=== PATIENT | male | born 1970 | race Caucasian/White ===

== ENCOUNTER → 2021-06-17 10:22 | Outpatient (BNVA) | payer BC, SELFPAY | PROVIDERS: PCP Physician Assistant; Referring Provider Physician Assistant; Visit Provider Surgery ==

== ENCOUNTER 2021-06-22 06:10 | Day surgery (SDC) | payer BC, SELFPAY ==
--- NOTE | 2021-06-21 14:03 | HO.ANESPROP2 ---
Documented by User: Alessia Kulkarni NP 06/21/21 14:11 HPI - Anesthesia Eval Consult details Narrative: 50yo M for Left ?Hernia Repair Inguinal with Mesh +ETOH [facility] Active Problems Active Problems: All Active Problems (Updated 06/21/21 @ 08:58 by Alessia Kulkarni NP) Screening for hypothyroidism (Acute) Screening for hypercholesterolemia (Acute) Screening for diabetes mellitus (DM) (Acute) Inguinal hernia (Acute) Past Medical History Medical History Alcohol abuse Gout HLD (hyperlipidemia) HTN (hypertension) Smoking Family History Family History Father Cancer Surgical History Surgical History History of back surgery (09/2018) Social History Social History Housing: House Alcohol intake: never Patient Tobacco Use Status: Current everyday Tobacco user Tobacco use type: Cigarette Cigarettes Per Day: 12 e-Cigarette/Vaping Use: Never Used Second Hand Smoke Exposure: No Use of substances other than those prescribed or required for medical reasons: No Have you been hit, kicked, punched, or otherwise hurt by someone within the past year? If so, by whom?: No Are you DNR?: No Advance Directives: No Advance Directives Information Provided: Yes service: No Current occupational status: employed Meds Allergies Allergy/AdvReac Type Severity Reaction Status Date / Time No Known Allergies Allergy Verified 06/22/21 06:43 [No Known Allergies*] Home Medications Medication Instructions Recorded Confirmed Last Taken Type zolpidem 10 mg tablet (Ambien) 10 mg PO BEDTIME PRN 05/12/21 05/12/21 Unknown History Exam Exam Date and Time: June 21, 2021 1403 Assessment and Plan Assessment Anesthesia Assessment: Chart Reviewed Documented by User: Lis Gongora MD 06/22/21 07:02 [facility] Past Medical History Medical History Alcohol abuse Gout HLD (hyperlipidemia) HTN (hypertension) Smoking Family History Family History Father Cancer Family history of problems with anesthesia: No Surgical History Surgical History History of back surgery (09/2018) History of Problems with Anesthesia: No Social History Social History Housing: House Alcohol intake: never Patient Tobacco Use Status: Current everyday Tobacco user Tobacco use type: Cigarette Cigarettes Per Day: 12 e-Cigarette/Vaping Use: Never Used Second Hand Smoke Exposure: No Use of substances other than those prescribed or required for medical reasons: No Have you been hit, kicked, punched, or otherwise hurt by someone within the past year? If so, by whom?: No Are you DNR?: No Advance Directives: No Advance Directives Information Provided: Yes service: No Current occupational status: employed Meds Allergies Allergy/AdvReac Type Severity Reaction Status Date / Time No Known Allergies Allergy Verified 06/22/21 06:43 [No Known Allergies*] Home Medications Medication Instructions Recorded Confirmed Last Taken Type zolpidem 10 mg tablet (Ambien) 10 mg PO BEDTIME PRN 05/12/21 05/12/21 Unknown History Exam Airway Mallampati Class: II TM Dist: >3cm Neck ROM: Full Assessment and Plan Assessment Anesthesia Assessment: Anesthesia Plan Discussed Final Anesthetic Review Family History of Problems with Anesthesia: No History of Problems with Anesthesia: No NPO: Yes ASA Class: II Final Preanesthetic Review: No Changes in Pt Med Stat, Meds/Allgs Chart Reviewed, Consent Obtained/Reviewed and Anes Risks/Benef Reviewed Patient Risk: Low Procedure Risk: Low Assessment/Block/Sedation in SS: Assess/Block/Sedation-SS Anesthetic Plan Anesthetic Plan: GA Disposition: Standard PACU
[2021-06-22] VITALS (10 sets, daily range): BP systolic 110–138; BP diastolic 68–87; PULSE 72–96; RESP 16–18; TEMP 36.2–36.4; O2SAT 98–100; BMI 23.0
[2021-06-22] MEDS: Lactated Ringers 1,000 ML 100 ML IVCONT (06:46)
--- NOTE | 2021-06-22 07:33 | MHC.SHP ---
Pre-Procedural Eval Section A Date of Service: 06/22/21 The patient is an INPATIENT: No Changes since office visit: Yes Patient answered all questions; No Cold of Flu in the past 2 weeks, No New Medical Problems and No Changes in Medication The History & Physical has been completed within 30 days and I have reviewed it.: Yes Section B Chief Complaint: Inguinal Hernia Allergies: Allergies Allergy/AdvReac Type Severity Reaction Status Date / Time No Known Allergies Allergy Verified 06/22/21 06:43 [No Known Allergies*] Plan Diagnosis/Plan: Unchanged I have reviewed the history and physical and performed a pertinent physical examination on my patient. No changes have occurred unless specified.
--- NOTE | 2021-06-22 07:33 | W.PM.OPN ---
Operative Note Operative Note Date of Service: 06/22/21 Narrative: Preoperative diagnosis: Left inguinal hernia Postoperative diagnosis: Left inguinal hernia Procedure: Repair of left inguinal hernia with mesh Surgeon: Aroldo Harrell MD [employer] Assembler: Roxana Bernstein PA-C Anesthesia: General LMA Indications for procedure: 50-year-old male presenting with a palpable mass in the right groin which creases in size with lifting and straining and reduces pressure. On examination the patient is found to have a palpable hernia within the inguinal canal suggestive of a left indirect inguinal hernia. Operative findings: Indirect left inguinal hernia Specimen: Hernia sac Estimated blood loss: 5 mL Complications: None Procedure details: Patient was brought to the OR and placed in a supine position. After administering general anesthesia the patient's abdomen was prepped with ChloraPrep and draped in a sterile fashion. A surgical time-out was called the consent confirmed. Patient received preoperative antibiotics and Venodyne boots were in place. Local anesthesia consisting of 0.5% Sensorcaine with epinephrine was then infiltrated over the left inguinal ligament. Incision was then made over the left inguinal ligament carried out through subcutaneous tissue past Dgao's fashion up to the external oblique aponeurosis. Additional local was infiltrated below the external oblique aponeurosis. This was then incised with a scalpel wide with the Metzenbaum scissors. The spermatic cord was then dissected free from the surrounding inguinal canal and retracted using a [place] drain. The floor of the inguinal canal was examined and no direct hernia identified. Fibers of the cremasteric muscle were then and a large indirect hernia sac identified. This was dissected free from the surrounding cord structures and ligated with 0 Polysorb suture proximally. The distal portion was dissected free and extended down past the external ring. The sac was sent to pathology for further examination. Attention was then directed to the floor of the inguinal canal. Fibers of the internal oblique aponeurosis and transversalis aponeurosis were then opened between Allis clamps. The preperitoneal space was then entered and widened with an open Ray-Mirella. A large PHS mesh was then obtained. The circular underlay was then deployed into the preperitoneal space. The overlay was then secured to the pubic tubercle, conjoined tendon, and shelving edge of the inguinal ligament using 0 Polysorb suture. The mesh was then split at the level of the internal ring and wrapped around the spermatic cord. This was then secured to the shelving edge of the inguinal ligament. The remaining mesh was placed below the external oblique aponeurosis laterally. Wounds were then irrigated with saline solution. Wounds were checked for hemostasis. Additional local anesthesia was infiltrated at this time. External oblique aponeurosis was then closed using a running 2 0 Polysorb suture. Dago's fascia and dermis were then reapproximated using interrupted 3-0 Polysorb sutures. Skin was closed using a running subcuticular 4-0 Polysorb suture. Steri-Strips 2 x 2 gauze and Tegaderm were then applied. The patient tolerated the procedure well. Sponge, instrument, and needle counts were reported as correct. The patient was transferred to PACU in stable condition.
[2021-06-22] MEDS: Acetaminophen 325 MG TABLET 650 MG PO (08:52)
[2021-06-22] MEDS: oxyCODONE HCl Immed Release 5 MG TABLET PO (08:53)
[2021-06-22] MEDS: fentaNYL citrate/PF 100 MCG/2 ML VIAL 50 MCG IVPUSH ×4 (08:53→09:21)
== END 2021-06-22 09:50 | disposition home or self-care (01) ==
PROVIDERS: PCP Physician Assistant; Visit Provider Surgery
PROC: (CPT 49505; principal; 2021-06-22 07:30)
DX: K40.90 Unilateral inguinal hernia, without obstruction or gangrene, not specified as recurrent (principal); I10 Essential (primary) hypertension; Z79.899 Other long term (current) drug therapy; F17.210 Nicotine dependence, cigarettes, uncomplicated
CPT/HCPCS: 49505; 88302; C1781; J0690; J1100; J2250; J2370; J2405; J3010

== ENCOUNTER → 2021-06-30 13:21 | Outpatient (BNVA) | payer BC, SELFPAY | PROVIDERS: PCP Physician Assistant; Referring Provider Physician Assistant; Visit Provider Surgery ==

== ENCOUNTER → 2021-07-28 10:50 | Outpatient (BNVA) | payer BC, SELFPAY | PROVIDERS: PCP Physician Assistant; Referring Provider Physician Assistant; Visit Provider Surgery ==

== ENCOUNTER 2025-04-16 12:51 | Outpatient (AMB) | payer BC, SELFPAY ==
--- NOTE | 2025-04-16 13:10 | MHC.PC.OV ---
Vital Signs 04/16/25 13:13 Height 5 ft 7.32 in Weight 154 lb 6 oz BMI 23.9 BP 142/104 H Blood Pressure Location Lt brachial Pulse 104 H Pulse Source Pulse Oximeter Temp 97.3 F Temp Source Temporal Artery Scan Pulse Oximetry (%) 98 Intake Visit Reasons: establish care/ hernia Oracle Specialist Required: No Accompanied by: Self / Same As Patient Allergies No Known Allergies (No Known Allergies*) Allergy (Verified 04/16/25 13:22) Medication List - Last Reconciled 04/16/25 by Jose Cummins PA-C No Known Home Meds Tobacco use date assessed: 04/16/25 Dental Screening Dental Screen Date: 04/16/25 Did you have a dental visit in the last 12 months?: No Did you have a dental problem in the last 6 months where you did not have access to dental care?: No Was dental information given to patient?: Patient has dentist HPI establish care/ hernia HPI Details Patient is a 54-year-old male here today for establish care visit. Has concerned about a right inguinal mass and pain. The hernia was first noticed in mid-December and was exacerbated three weeks ago during lifting at work, leading to significant discomfort and a fever that confined him to bed for three days. The hernia is not always visible, but it protrudes depending on the patient's position, particularly in the morning or during activities like showering. Noted elevated blood pressure reading today in office though could be related to his inguinal discomfort at this time. Advised to monitor blood pressure at home. [facility] Medical History Gout Alcohol abuse HLD (hyperlipidemia) HTN (hypertension) Smoking Surgical History S/P left inguinal hernia repair (06/22/21) History of back surgery (09/2018) Family History Father Cancer Social History (Updated 04/16/25 @ 13:24 by Jose Cummins PA-C) Housing: House Alcohol intake: former Year quit: 2017 Patient Tobacco Use Status: Former Tobacco user (quit 3 years ago) Tobacco use type: Cigarette Cigarettes Per Day: 12 e-Cigarette/Vaping Use: Currently Using (Nicotine) Second Hand Smoke Exposure: No Substance Use Type: Marijuana service: No Current occupational status: employed Cognitive needs: No Hearing needs: No Vision needs: No Questionnaire PHQ-9 Over the last 2 weeks, how often have you been bothered by any of the following problems? 1. Little interest or pleasure in doing things: not at all 2. Feeling down, depressed, or hopeless: not at all 3. Trouble falling or staying asleep, or sleeping too much: not at all 4. Feeling tired or having little energy: not at all 5. Poor appetite or overeating: not at all 6. Feeling bad about yourself - or that you are a failure or have let yourself or your family down: not at all 7. Trouble concentrating on things, such as reading the newspaper or watching television: not at all 8. Moving or speaking so slowly that other people could have noticed. Or the opposite - being so fidgety or restless that you have been moving around a lot more than usual: not at all 9. Thoughts that you would be better off or of hurting yourself in some way: not at all Total score: 0 Depression Screening Interpretation: Negative Depression Screening Done: Yes 08869 - PHQ-9 Billing: Yes Source: Developed by Drs. Claudy Rae, Shayla Roper, Trever Perez and colleagues, with an educational ayleen from [employer]. Thrive Questionnaire Date Thrive assessed: 04/16/25 I am a: Patient What is your living situation today?: I have a steady place to live Within the past 12 months, did the food you bought not last and you didn't have the money to get more?: Never true Within the past 12 months, did you worry whether your food would run out before you got money to buy more?: Never true Do you have trouble paying for medicines?: No Do you have trouble getting transportation to medical appointments?: No Do you have trouble paying your heating and electricity bill?: No Do you have trouble taking care of your child, family member or friend?: No Do you have trouble with day-to-day activities such as bathing, preparing meals, shopping, managing finances, etc.?: No Are you currently unemployed and looking for a job?: No Are you interested in more education?: No Please select the resources that you would like help with: None Currently or been in a relationship where the following occur: No concerns reported THRIVE Score: 0 AUDIT C Alcohol Use Questionnaire (AUDIT-C) 1. How often do you have a drink containing alcohol?: Never 3. How often do you have six or more drinks on one occasion?: Never Total Score: 0 LANDY-7 AMB Questionnaire LANDY-7 Date LANDY - 7 assessed: 04/16/25 Feeling nervous, anxious, or on edge: 0 = Not at all Not being able to stop or control worryin = Not at all Worrying too much about different things: 0 = Not at all Trouble relaxin = Not at all Being so restless that it is hard to sit still: 0 = Not at all Becoming easily annoyed or irritable: 0 = Not at all Feeling afraid as if something awful might happen: 0 = Not at all Total LANDY-7 score (0-4 normal; 5-9 mild; 10-14 moderate; 15-21 severe): 0 Source: Developed by Drs. Claudy Rae, Shayla Roper, Trever Perez and colleagues, with an educational ayleen from [employer]. LANDY-7 Assessment Billing LANDY-7 Assessment Tool: LANDY-7 Assessment 50644 Review of Systems Const Denies headache(s) Eyes Denies loss of vision ENT Denies vertigo, Denies dizziness, Denies headache(s) and Denies sore throat Card Denies chest pain, Denies leg edema and Denies lightheadedness Resp Denies cough, Denies hemoptysis and Denies wheezing GI Denies abdominal pain, Denies melena, Denies constipation, Denies diarrhea and Denies vomiting Denies dysuria, Denies urinary frequency and Denies urinary urgency Musc Denies arthralgias, Denies joint swelling, Denies numbness and Denies tingling Neuro Denies Abnormal speech present, Denies behavioral changes, Denies vertigo, Denies dizziness, Denies headache(s), Denies loss of vision, Denies memory loss, Denies numbness and Denies tingling Psych Denies anxiety, Denies behavioral changes, Denies depression, Denies memory loss and Denies panic attacks Arturo/Lymph Denies easy bleeding and Denies easy bruising Aller/Immun Denies wheezing Physical exam (Primary Care) Vital Signs: Last Vital Signs Temp 97.3 F 04/16/25 13:13 Pulse 104 H 04/16/25 13:13 BP 142/104 H 04/16/25 13:13 Pulse Ox 98 04/16/25 13:13 BMI result Body Mass Index 23.9 Tobacco/Smoking Status: Tobacco use Status Tobacco use date assessed 04/16/25 04/16/25 13:21 Patient Tobacco Use Status Former Tobacco user (quit 3 04/16/25 13:21 years ago) Tobacco use type Cigarette 04/16/25 13:20 e-Cigarette/Vaping Use Currently Using (Nicotine) 04/16/25 13:21 PHQ-9: PHQ-9 Score PHQ-9: Total score 0 04/16/25 13:21 Depression Screening Interpretation: Negative Thrive Assessment: Date of Thrive Assessment Date Thrive assessed 04/16/25 04/16/25 13:12 Currently or been in a relationship where the following occur: No concerns reported Const General: healthy appearing, no acute distress, alert and awake Nutritional Appearance: well nourished Orientation/consciousness: oriented to person, oriented to place and oriented to time HENMT Ears: TM's normal bilaterally General nose exam: Normal nasal mucous membranes and turbinates present Eyes Conjunctivae: conjunctivae normal Sclerae: sclerae normal Pupils: Equal, round and reactive pupils present Neck Neck: Yes no lymphadenopathy and Yes no JVD Thyroid: Thyroid normal Carotids: no bruits Resp Effort & Inspection: normal respiratory effort and not tachypneic Auscultation: no crackles, no rales, no rhonchi and no wheezes Cardio Rate: regular rate Rhythm: regular rhythm Heart sounds: no murmurs and normal S1 and S2 GI Palpation (GI): Soft to palpation, nontender, no hepatomegaly and no splenomegaly Auscultation: normal bowel sounds Abdomen image:  1. FULLNESS NOTED IN THE RIGHT INGUINAL AREA. Skin General skin exam: no rashes or lesions noted and dry skin Neuro General: oriented to person, oriented to place and oriented to time Cranial nerves: Yes Equal, round and reactive pupils present Speech: No Abnormal speech present Gait exam (Neuro): Normal gait present Motor exam (neuro): no tremor noted Extrem Right upper extremity: full ROM Left upper extremity: full ROM Right lower extremity: full ROM; no edema Left lower extremity: full ROM; no edema Psych Mental Status: mental status grossly normal Speech and movement: Normal speech and movement present Affect: normal affect Attitude: cooperative Thought process: Normal thought process present Coding Level of Care Code New Pt Level 4 (50590) Diagnoses Right inguinal hernia K40.90 Additional Codes LANDY-7 Assessment Billing - LANDY-7 Assessment Tool: LANDY-7 Assessment 71071 ([id number]) PHQ-9 - 67359 - PHQ-9 Billing: Yes ([id number]) Assessment & Plan Assessment & Plan (1) Right inguinal hernia: Code(s): K40.90 - Unilateral inguinal hernia, without obstruction or gangrene, not specified as recurrent Category: Medical Plan: A referral to a general surgeon will be made for surgical evaluation and repair of the right inguinal hernia. A CT scan of the abdomen and pelvis will be ordered to assess the hernia further and provide necessary imaging for the surgeon. Orders: Orders Complete Blood Count no Diff Today Z13.1 - Encounter for screening for diabetes mellitus CT abdomen pelvis wo IV con Today K40.90 - Unilateral inguinal hernia, without obstruction or gangrene, not specified as recurrent Comprehensive [place]. Panel Fast Today Z13.1 - Encounter for screening for diabetes mellitus Prostate Specific Antigen Scr Today Z12.5 - Encounter for screening for malignant neoplasm of prostate, Z13.1 - Encounter for screening for diabetes mellitus Referrals General Surgery Referral K40.90 - Unilateral inguinal hernia, without obstruction or gangrene, not specified as recurrent Medications: New diclofenac sodium 50 mg PO DAILY 15 tabs 0RF 15 days K40.90 - Unilateral inguinal hernia, without obstruction or gangrene, not specified as recurrent
[2025-04-16 13:13] VITALS: BP 142/104; PULSE 104; TEMP 36.3; O2SAT 98; BMI 23.9
== END 2025-04-16 13:34 | disposition home or self-care (01) ==
LOC: HO.HMCH 12:52
PROVIDERS: PCP Physician Assistant; Visit Provider Physician Assistant
DX: K40.90 Unilateral inguinal hernia, without obstruction or gangrene, not specified as recurrent (principal)

== ENCOUNTER → 2025-04-16 12:51 | Outpatient (BNVA) | payer BC, SELFPAY | PROVIDERS: Visit Provider Physician Assistant | DX: K40.90 Unilateral inguinal hernia, without obstruction or gangrene, not specified as recurrent (principal) | CPT/HCPCS: 96127 ==

== ENCOUNTER 2025-04-27 13:58 | Outpatient (AMB) | payer BC, SELFPAY ==
--- NOTE | 2025-04-27 14:09 | MHC.OFFVIS ---
Vital Signs 04/27/25 14:13 Height 5 ft 7.35 in Weight 157 lb BMI 24.3 BP 152/90 H Blood Pressure Location Lt brachial Position Sitting Intake Visit Reasons: hernia Intake Note: c/o hernia in rt side. Noted it first in december. Painful in the last 4 weeks. had Hernia repair in left side in Aug Information Interpreted: clinical only Accompanied by: Self / Same As Patient Allergies No Known Allergies (No Known Allergies*) Allergy (Verified 04/27/25 14:12) Medication List - Last Reconciled 04/27/25 by Rebecca Chase LPN diclofenac sodium 50 mg PO DAILY 15 days Do you need a note to return to daycare/school/sports/work: No HPI Comments Details: 54-year-old male patient returning for complaints of pain and swelling in the right groin. He has a previous history of a left inguinal hernia which was repaired with mesh in 2020. Since this time he now notes pain and swelling in the right groin which began in December after doing some heavy lifting. The pain has increased in severity as has the size of the hernia. He denies nausea, vomiting, fever, chills, diarrhea, constipation or bloody stools. He denies a previous history of surgery in the right groin. [place] [facility] but would like to have the hernia repaired soon after that if possible. [facility] Medical History Gout Alcohol abuse HLD (hyperlipidemia) HTN (hypertension) Smoking Surgical History S/P left inguinal hernia repair (06/22/21) History of back surgery (09/2018) Family History Father Cancer Social History Housing: House Alcohol intake: former Year quit: 2017 Patient Tobacco Use Status: Former Tobacco user (quit 3 years ago) Tobacco use type: Cigarette Cigarettes Per Day: 12 e-Cigarette/Vaping Use: Currently Using (Nicotine) Second Hand Smoke Exposure: No Substance Use Type: Marijuana service: No Current occupational status: employed Cognitive needs: No Hearing needs: No Vision needs: No Review of Systems Const All systems reviewed & are unremarkable except as noted in HPI and below Physical Exam Vital Signs: Last Vital Signs BP 152/90 H 04/27/25 14:13 BMI result Body Mass Index 24.3 Const General: cooperative and no acute distress Nutritional Appearance: well nourished Orientation/consciousness: patient oriented x3 Limitations: no limitations HEENT Head: Yes normocephalic and Yes atraumatic Ears: hearing grossly normal bilaterally Resp Effort & Inspection: normal respiratory effort, no audible wheezes, no cough and no respiratory distress Cardio Jugular venous distension: no JVD GI Other: Large right inguinal hernia noted in the standing position which increases in size with Valsalva maneuvers. The hernias able to be reduced with some difficulty while in the supine position. There is some tenderness with palpation of the hernia. No hernias noted in the left groin. Inspection: Yes normal to inspection Skin Other: Warm, dry, no rash Neuro General: patient oriented x3 Extrem General: Yes no clubbing, cyanosis or edema Assessment & Plan Assessment & Plan (1) Right inguinal hernia: Code(s): K40.90 - Unilateral inguinal hernia, without obstruction or gangrene, not specified as recurrent Category: Medical Plan 54-year-old male patient with a previous history of a left inguinal hernia repair now presenting with a new right inguinal hernia which is causing discomfort. On examination he does have a large reducible right inguinal hernia which is tender to palpation. I recommended repair of this reducible right inguinal hernia with mesh and after discussion of the procedure, risks, and alternatives, he consents to the surgery. I suggested he obtain a hernia truss in the meantime help keep the hernia reduced especially if lifting is required in his job. He expressed understanding. Coding Level of Care Code New Pt Level 4 (94390) Diagnoses Right inguinal hernia K40.90
[2025-04-27 14:13] VITALS: BP 152/90; BMI 24.3
== END 2025-04-27 15:03 | disposition home or self-care (01) ==
LOC: HO.HGS 13:59
PROVIDERS: PCP Physician Assistant; Visit Provider Surgery
DX: K40.90 Unilateral inguinal hernia, without obstruction or gangrene, not specified as recurrent (principal)
CPT/HCPCS: 99204

== ENCOUNTER 2025-05-01 07:49 | Outpatient (REF) | payer BC, SELFPAY ==
[2025-05-01 08:16] LABS: Hematocrit 42.4 % (42.0-52.0); Hemoglobin 14.2 g/dl (14.0-18.0); Mean Corpuscular HGB Conc 33.5 g/dl (31.0-36.0); Mean Corpuscular Hemoglobin 28.2 pg (27.0-33.0); Mean Corpuscular Volume 84.1 fL (80.0-98.0); NRBC Abs Auto 0.000 X10*3/uL (0.0-0.012); NRBC Pct Auto 0.0 /100WBC (0.0-0.2); Platelet Count 227 X10*3/uL (160-400); Red Blood Count 5.04 X10*6/uL (4.60-5.80); White Blood Count 6.5 X10*3/uL (4.8-10.8)
[2025-05-01 08:45] LABS: Alanine Aminotransferase 11 U/L (0-40); Albumin Level 4.5 g/dL (3.5-5.0); Alkaline Phosphatase 63 U/L (39-117); Anion Gap 12 (12-20); Aspartate Amino Transferase 14 U/L (5-37); Blood Urea Nitrogen 12 mg/dL (9-16); Calcium 9.2 mg/dL (8.4-10.2); Carbon Dioxide 25 mmol/L (22-29); Chloride 105 mmol/L (96-108); Estimated Glomerular Filt Rate > 60; Potassium 4.4 mmol/L (3.3-5.1); Sodium 138 mmol/L (135-145); Total Protein 7.3 g/dL (6.5-8.0)
== END 2025-05-01 07:50 | disposition home or self-care (01) ==
LOC: HO.LAB 07:49
PROVIDERS: PCP Physician Assistant; Visit Provider Physician Assistant
DX: Z12.5 Encounter for screening for malignant neoplasm of prostate (principal); Z13.1 Encounter for screening for diabetes mellitus
CPT/HCPCS: 36415; 80053; 84153; 85027

== ENCOUNTER 2025-05-13 08:29 | Day surgery (SDC) | payer BC, SELFPAY ==
[2025-05-11 12:08] VITALS: BMI 24.6
--- NOTE | 2025-05-12 09:17 | HO.ANESPROP2 ---
HPI - Anesthesia Eval Consult details Narrative: 54 yr old male for right Inguinal hernia repair, reducible with mesh s/p left inguinal hernia repair 2020 Labs utd with PCP 05/01/25 [facility] Active Problems Active Problems: All Active Problems (Updated 04/16/25 @ 13:30 by Jose Cummins PA-C) Right inguinal hernia (Acute) Screening for hypothyroidism (Acute) Screening for hypercholesterolemia (Acute) Screening for diabetes mellitus (DM) (Acute) Inguinal hernia (Acute) Past Medical History Medical History Gout Alcohol abuse HLD (hyperlipidemia) HTN (hypertension) Smoking Family History Family History Father Cancer Family history of problems with anesthesia: No Surgical History Surgical History S/P left inguinal hernia repair (06/22/21) History of back surgery (09/2018) History of Problems with Anesthesia: No Social History Social History Housing: House Alcohol intake: former Year quit: 2018 Patient Tobacco Use Status: Former Tobacco user (quit 3 years ago) Tobacco use type: Cigarette Cigarettes Per Day: 12 e-Cigarette/Vaping Use: Currently Using (Nicotine) Second Hand Smoke Exposure: No Substance Use Type: Marijuana service: No Current occupational status: employed Cognitive needs: No Hearing needs: No Vision needs: No Meds Allergies Allergy/AdvReac Type Severity Reaction Status Date / Time No Known Allergies (No Known Allergy Verified 04/27/25 14:12 Allergies*) Exam Height,Weight and Vital Signs: Height 5 ft 7 in Weight 71.214 kg Assessment and Plan Final Anesthetic Review Family History of Problems with Anesthesia: No History of Problems with Anesthesia: No
[2025-05-13] VITALS (8 sets, daily range): BP systolic 116–170; BP diastolic 69–100; PULSE 48–92; RESP 16–18; TEMP 36.1–36.7; O2SAT 92–100; BMI 24.5
[2025-05-13] MEDS: Lactated Ringers 1,000 ML 100 ML IVCONT (08:49)
--- NOTE | 2025-05-13 09:38 | HO.ANESPROP2 ---
[facility] Active Problems Active Problems: All Active Problems (Updated 04/16/25 @ 13:30 by Jose Cummins PA-C) Right inguinal hernia (Acute) Screening for hypothyroidism (Acute) Screening for hypercholesterolemia (Acute) Screening for diabetes mellitus (DM) (Acute) Inguinal hernia (Acute) Past Medical History Medical History Gout Alcohol abuse HLD (hyperlipidemia) HTN (hypertension) Smoking Functional capacity: independent ambulation Family History Family History Father Cancer Family history of problems with anesthesia: No Surgical History Surgical History S/P left inguinal hernia repair (06/22/21) History of back surgery (09/2018) History of Problems with Anesthesia: No Social History Social History Housing: House Alcohol intake: former Year quit: 2018 Patient Tobacco Use Status: Former Tobacco user Tobacco use type: Smokeless Tobacco Cigarettes Per Day: 12 e-Cigarette/Vaping Use: Currently Using (Nicotine) Second Hand Smoke Exposure: No Substance Use Type: Marijuana Have you been hit, kicked, punched, or otherwise hurt by someone within the past year? If so, by whom?: No Are you DNR?: No Advance Directives: No Advance Directives Information Provided: Yes service: No Current occupational status: employed Cognitive needs: No Hearing needs: No Vision needs: No Meds Allergies Allergy/AdvReac Type Severity Reaction Status Date / Time No Known Allergies (No Known Allergy Verified 04/27/25 14:12 Allergies*) Active Medications: Current Medications Lactated Ringer's (Lr) 1,000 mls @ 100 mls/hr IVCONT .Q10H MIR Last Admin: 05/13/25 08:49 Dose: 100 mls/hr Home Medications ?Medication ?Instructions ?Recorded ?Confirmed ?Last Taken ?Type No Known Home Meds 05/13/25 05/13/25 Unknown History Exam Height,Weight and Vital Signs: Height 5 ft 7 in Weight 70.9 kg Last Vital Signs Temp 97 F 05/13/25 08:55 Pulse 62 05/13/25 08:55 Resp 18 05/13/25 08:55 BP 116/81 05/13/25 08:55 Pulse Ox 97 05/13/25 08:55 O2 Del Method Room Air 05/13/25 08:55 Assessment and Plan Final Anesthetic Review Family History of Problems with Anesthesia: No History of Problems with Anesthesia: No
--- NOTE | 2025-05-13 10:10 | MHC.SHP ---
Pre-Procedural Eval Section A - 24 Hr Update-Section A only Date of Service: 05/13/25 The patient is an INPATIENT: No Changes since office visit: Yes Patient answered all questions; No Cold of Flu in the past 2 weeks, No New Medical Problems and No Changes in Medication The patient has been examined within 24 hours of the surgical procedure. The History & Physical has been completed within 30 days and I have reviewed it.: Yes Section B - Complete if H&P > 30 days Chief Complaint: Unilateral inguinal hernia, without obstruction Allergies: Allergies Allergy/AdvReac Type Severity Reaction Status Date / Time No Known Allergies (No Known Allergy Verified 04/27/25 14:12 Allergies*) Plan Diagnosis/Plan: Unchanged I have reviewed the history and physical and performed a pertinent physical examination on my patient. No changes have occurred unless specified. Time Spent With Patient Time: Total time managing care of this patient today ____ minutes.
--- NOTE | 2025-05-13 10:13 | HO.ANESPROP2 ---
[facility] Active Problems Active Problems: All Active Problems (Updated 04/16/25 @ 13:30 by Jose Cummins PA-C) Right inguinal hernia (Acute) Screening for hypothyroidism (Acute) Screening for hypercholesterolemia (Acute) Screening for diabetes mellitus (DM) (Acute) Inguinal hernia (Acute) Past Medical History Medical History Gout Alcohol abuse HLD (hyperlipidemia) HTN (hypertension) Smoking Functional capacity: independent ambulation Family History Family History Father Cancer Family history of problems with anesthesia: No Surgical History Surgical History S/P left inguinal hernia repair (06/22/21) History of back surgery (09/2018) History of Problems with Anesthesia: No Social History Social History Housing: House Alcohol intake: former Year quit: 2018 Patient Tobacco Use Status: Former Tobacco user Tobacco use type: Smokeless Tobacco Cigarettes Per Day: 12 e-Cigarette/Vaping Use: Currently Using (Nicotine) Second Hand Smoke Exposure: No Substance Use Type: Marijuana Have you been hit, kicked, punched, or otherwise hurt by someone within the past year? If so, by whom?: No Are you DNR?: No Advance Directives: No Advance Directives Information Provided: Yes service: No Current occupational status: employed Cognitive needs: No Hearing needs: No Vision needs: No Meds Allergies Allergy/AdvReac Type Severity Reaction Status Date / Time No Known Allergies (No Known Allergy Verified 04/27/25 14:12 Allergies*) Active Medications: Current Medications Lactated Ringer's (Lr) 1,000 mls @ 100 mls/hr IVCONT .Q10H MIR Last Admin: 05/13/25 08:49 Dose: 100 mls/hr Home Medications ?Medication ?Instructions ?Recorded ?Confirmed ?Last Taken ?Type No Known Home Meds 05/13/25 05/13/25 Unknown History Exam Height,Weight and Vital Signs: Height 5 ft 7 in Weight 70.9 kg Last Vital Signs Temp 97 F 05/13/25 08:55 Pulse 62 05/13/25 08:55 Resp 18 05/13/25 08:55 BP 116/81 05/13/25 08:55 Pulse Ox 97 05/13/25 08:55 O2 Del Method Room Air 05/13/25 08:55 Airway Mallampati Class: I TM Dist: >3cm Neck ROM: Full Heart: RRR Lungs: CTA Assessment and Plan Assessment Anesthesia Assessment: Anesthesia Plan Discussed and Chart Reviewed Final Anesthetic Review Family History of Problems with Anesthesia: No History of Problems with Anesthesia: No NPO: Yes ASA Class: II Final Preanesthetic Review: Meds/Allgs Chart Reviewed, Consent Obtained/Reviewed and Anes Risks/Benef Reviewed Patient Risk: Intermediate Procedure Risk: Low Anesthetic Plan Anesthetic Plan: GA Disposition: Standard PACU
--- NOTE | 2025-05-13 11:26 | W.PM.OPN ---
Operative Note Operative Note Date of Service: 05/13/25 Narrative: Preoperative diagnosis: Right inguinal hernia, reducible Postoperative diagnosis: Same Procedure: Repair of right inguinal hernia with mesh Surgeon: Aroldo Harrell MD Structured Cabling Technician: Michoacano Gonzales PA-C, Vernon PALM Anesthesia: General LMA Indications for procedure: 54-year-old male patient with a previous history of a left inguinal hernia repair now presenting with a lump in the right groin which increases in size with lifting and straining and reduces with light pressure. On examination he has a palpable right inguinal hernia which is reducible with light pressure. Operative findings: Right indirect inguinal hernia Specimen: Hernia sac Estimated blood loss: Less than 2 mL Complications: None Procedure details: Patient was brought to the OR and placed in a supine position. After administering general anesthesia the patient's abdomen was prepped with ChloraPrep and draped in a sterile fashion. A surgical time-out was called the consent confirmed. Patient received preoperative antibiotics and Venodyne boots were in place. Local anesthesia consisting of 0.5% Sensorcaine was infiltrated over the right inguinal ligament. Incision was made with a scalpel and carried out through subcutaneous tissue, past Dago's fashion up to the external oblique aponeurosis. Additional local was infiltrated below the external oblique aponeurosis. This was then incised with a scalpel and widened with the Metzenbaum scissors. The spermatic cord was then dissected free from the surrounding inguinal canal and retracted using a Valentine drain. The floor of the inguinal canal was found to be intact without a direct inguinal hernia. Fibers of the cremaster muscle were then and a large hernia sac identified. This was dissected to the internal ring. The sac was then opened and the contents reduced. The sac was then ligated at its base using a 0 Polysorb suture. The sac was then excised and sent to pathology for further examination. The internal ring was then further dilated using a open Ray-Mirella sponge to dissect the preperitoneal space. A large PHS mesh was then obtained. The circular underlay was then deployed within the preperitoneal space. The overlay was then secured to the pubic tubercle, conjoined tendon, and shelving edge of the inguinal ligament using a 0 Polysorb suture. A slit was made in the mesh in the mesh wrapped around the spermatic cord at the internal ring. This was then secured to the shelving edge using the 0 Polysorb suture. The wrap was tight enough to allow passage of the index finger into the internal ring. The remainder of the mesh was placed below the external oblique aponeurosis laterally. Wounds were then irrigated with saline solution and suctioned dry. Wounds were checked for hemostasis. External oblique aponeurosis was then reapproximated using a running 2-0 Polysorb suture. Dago's fascia and dermis were reapproximated using interrupted 3-0 Polysorb sutures. Skin was then closed using a running subcuticular 4-0 Polysorb suture. Steri-Strips, 4 x 4 gauze and Tegaderm were then applied. The patient tolerated the procedure well. Sponge, instrument, and needle counts reported as correct. The patient was transferred to PACU in stable condition.
--- NOTE | 2025-05-13 17:02 | HO.POSTANES ---
Post Anesthesia Evaluation Post Anesthesia Evaluation Date of Service: 05/13/25 Vital Signs: Vital Signs Temp Pulse Resp BP Pulse Ox O2 Del Method 05/13/25 12:12 97.6 F 72 18 165/93 H 99 Room Air 05/13/25 11:57 71 18 159/92 H 100 Room Air 05/13/25 11:52 70 18 137/80 99 Room Air 05/13/25 11:47 73 18 133/71 97 Room Air 05/13/25 11:42 98.0 F 92 16 139/69 92 Room Air 05/13/25 08:55 97 F 62 18 116/81 97 Room Air 05/13/25 08:51 48 L 150/92 H 05/13/25 08:32 97.5 F 83 18 170/100 H 98 Room Air Anesthesia: General LMA Mental Status: Awake Pain Control: Satisfactory Nausea/Vomiting: None Hydration: Adequate Anesthesia-Related Issues: No Anes. Related Issues
== END 2025-05-13 12:42 | disposition home or self-care (01) ==
PROVIDERS: PCP Physician Assistant; Visit Provider Surgery
PROC: (CPT 49505; principal; 2025-05-13 10:00)
DX: K40.90 Unilateral inguinal hernia, without obstruction or gangrene, not specified as recurrent (principal); Z87.39 Personal history of other diseases of the musculoskeletal system and connective tissue; M10.9 Gout, unspecified; F10.10 Alcohol abuse, uncomplicated; I10 Essential (primary) hypertension; E78.5 Hyperlipidemia, unspecified; F17.220 Nicotine dependence, chewing tobacco, uncomplicated; Z98.890 Other specified postprocedural states
CPT/HCPCS: 49505; 88302; C1781; C9088; J0131; J0690; J1100; J1885; J2003; J2250; J2405; J2704; J3010

== ENCOUNTER → 2025-05-13 08:29 | Outpatient (BNV) | payer BC, SELFPAY | PROVIDERS: PCP Physician Assistant; Visit Provider Surgery | DX: K40.20 Bilateral inguinal hernia, without obstruction or gangrene, not specified as recurrent (principal) | CPT/HCPCS: 49505 ==

== ENCOUNTER 2025-05-26 13:18 | Outpatient (AMB) | payer BC, SELFPAY ==
--- NOTE | 2025-05-26 13:19 | A.OFFVIS_ITS ---
Vital Signs 05/26/25 13:25 Height 5 ft 7 in Weight 156 lb 8.451 oz BMI 24.5 BP 180/110 H Pulse 89 Intake Visit Reasons: s/p RIH w/mesh Intake Note: Patient is seen in office for post op assessment post right inguinal hernia repair. 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 He reports some bruising in the surrounding incision but generally feels well. The pain is improving as well. He denies any nausea, vomiting, or difficulty with his bowels. PFSH Medical History Gout Alcohol abuse HLD (hyperlipidemia) HTN (hypertension) Smoking Surgical History Hx of right inguinal hernia repair (05/13/25) S/P left inguinal hernia repair (06/22/21) History of back surgery (09/2018) Family History Father Cancer Social History Housing: House Alcohol intake: former Year quit: 2017 Patient Tobacco Use Status: Former Tobacco user Tobacco use type: Smokeless Tobacco Cigarettes Per Day: 12 e-Cigarette/Vaping Use: Currently Using (Nicotine) Second Hand Smoke Exposure: No Substance Use Type: Marijuana service: No Current occupational status: employed Cognitive needs: No Hearing needs: No Vision needs: No Physical Exam Vital Signs: Last Vital Signs Pulse 89 05/26/25 13:25 BMI result Body Mass Index 24.5 Const General: comfortable Nutritional Appearance: well nourished Orientation/consciousness: patient oriented x3 Limitations: no limitations Resp Effort & Inspection: normal respiratory effort GI Other: Right inguinal incision is clean, dry and intact. The dressing was still in place and was moist from showering. Dressing was removed and intact Steri- Strips noted. Surrounding ecchymosis with no evidence of infection or hernia. Skin Other: Warm, dry, no rash Neuro General: patient oriented x3 Assessment & Plan Assessment & Plan (1) Right inguinal hernia: Code(s): K40.90 - Unilateral inguinal hernia, without obstruction or gangrene, not specified as recurrent Category: Medical Plan 54-year-old male returning 2 weeks following repair of a right inguinal hernia with mesh. He tolerated the procedure well the wounds are healing nicely. I recommended he continue to avoid lifting greater than 10 lb. He should return in approximately 3 weeks for follow-up examination. Coding Level of Care Code Global (78622) Diagnoses Right inguinal hernia K40.90
[2025-05-26 13:25] VITALS: BP 180/110; PULSE 89; BMI 24.5
--- OUTSIDE RECORDS SUMMARY | 2025-05-26 13:58 | XMS_ITS | Clinical Summary ---
Author Organization [facility] Address [address] [address] Phone Care Team Providers Care News Copy Editor Name Role Phone Unknown, Unknown Primary Care Provider Estuardo lable Allergies No known active allergies Medications sertraline (ZOLOFT) 100 MG tablet Take 100 mg by mouth daily. Active allopurinol (ZYLOPRIM) 300 MG tablet Take 300 mg by mouth daily. Active lisinopril (PRINIVIL,ZESTR IL) 40 MG tablet Take 40 mg by mouth daily. Active b complex vitamins capsule Take 1 capsule by mouth daily. Active amLODIPine (NORVASC) 10 MG tablet Take 10 mg by mouth daily. Active traZODone (DESYREL) 50 MG tablet Take 50 mg by mouth nightly. Active calcitonin, salmon, (MIACALCIN) 200 unit/actuation nasal spray 1 spray by Nasal route daily. 3.7 mL 3 10/31/2018 Active teriparatide (FORTEO) 20 mcg/dose - 600 mcg/2.4 mL PnIj Inject 0.08 mL under the skin daily. 2.4 mL 11 12/19/2018 Active ergocalciferol (DRISDOL) 50,000 unit capsule Take 1 capsule (50,000 Units total) by mouth 2 (two) times a week. 26 capsule 3 12/19/2018 Active Active Problems Problem Noted Date Diagnosed Date Other osteoporosis without current pathological fracture 10/31/2018 Hypovitaminosis D 10/31/2018 Localized osteoporosis with current pathological fracture with routine healing 10/21/2018 Family History Medical History Relation Comments Hypertension Mother Osteoporosis Mother Relation Status Comments Mother Social History Tobacco Use Types Packs/Day Years Used Date Smoking Tobacco: Every Day Smokeless Tobacco: Never Comments:8 cigs per day Alcohol Use Standard Drinks/Week Comments No 0 (1 standard drink = 0.6 oz pur e alcohol) Education Answer Date Recorded Are you interested in more education? Not on griselda e 02/16/2023 Are you concerned about learning? Not on file 02/16/2023 No 02/16/2023 No 02/16/2023 Digital Access Answer Date Recorded No 03/17/2023 No 03/17/2023 No 03/17/2023 Reliable internet access at home? Not on file 03/17/2023 Device with a working camera? Not on file Sex and Gender Information Value Date Recorded Sex Assigned at Not on file Legal Sex Male 10:40 AM EST Gender Identity Not on file Sexual Orientation Not on file Last Filed Vital Signs Vital Sign Reading Time Taken Comments Blood Pressure 122/78 12/19/2018 10:04 AM EST Pulse - - Temperature - - Respiratory Rate - - Oxygen Saturation - - Inhaled Oxygen Concentration - - Weight 107 kg (235 lb 12.8 oz) 10/31/2018 10:02 AM EST Height 177.8 cm (5' 10 ) 10/21/2018 11:06 AM EST Body Mass Index 33.83 10/21/2018 11:06 AM EST Plan of Treatment Health Maintenance Due Date Last Done Comments LIPID PANEL 1970 POTASSIUM LEVEL 1970 DEPRESSION SCREENING 1982 SMOKING Hx and SMOKELESS TOBACCO SCREENING 12/28/1983 HEPATITIS C SCREENING 1988 HIV ONE-TIME SCREENING (18-6 5 YEARS) 1988 PNEUMOCOCCAL VACCINES (50+ years) (1 of 2 - PCV) 1989 COLOGUARD 12/28/2015 COLONOSCOPY 12/28/2015 COLORECTAL CANCER SCREENING 12/28/2015 FIT TEST 12/28/2015 FOBT 12/28/2015 SIGMOIDOSCOPY 12/28/2015 VIRTUAL COLONOSCOPY 12/28/2015 CREATININE LEVEL 10/23/2019 10/23/2018 ZOSTER VACCINES (1 of 2) 2020 COVID-19 VACCINE ( - 2023-2 5 season) 2024 Adult Td,Tdap Booster 05/29/2028 05/29/2018 , 01/26/2018 HEPATITIS A VACCINES Aged Out No long er eligible based on patient's age to complete this topic HIB VACCINES Aged Out No longer eligi ble based on patient's age to complete this topic MENINGOCOCCAL VACCINES (ACWY) Aged Out No longer eligible based on patient's age to complete this topic MENINGOCOCCAL VACCINES (B) Aged Out N o longer eligible based on patient's age to complete this topic Medical Devices Not on file Procedures Procedure Name Priority Date/Time Associated Diagnosis Comments CREATININE, 24 HR URINE Routine 10/23/2018 12:14 PM EST Localized osteoporosis with current pathological fracture, initial encounter from Last 3 Months or Most Recently Relevant to Health Maintenance Results * Creatinine, 24 hr urine (10/23/2018 12:14 PM EST) URINE CREATININE 119 mg/dL [facility] CREATININE OUTPUT 982 800 - 2,000 mg/total output [facility] Urine (Urine) 10/23/2018 12: 14 PM EST 10/23/2018 12:21 PM EST Claudy Cunha MD URINE ORDERABLES Final Result Performing Organization Address City/State/[facility] Co de Phone Number [address] [address] from Last 3 Months or Most Recently Relevant to Health Maintenance Insurance [facility] Care Teams News Copy Editor Relationship Specialty Start Date End Date Unknown, Unknown, PCP - General 09/27/18 Additional Source Comments The information contained in this document represents components of the legal health record. It is not the complete legal health record.[facility]
== END 2025-05-26 13:31 | disposition home or self-care (01) ==
LOC: HO.HGS 13:19
PROVIDERS: PCP Physician Assistant; Visit Provider Surgery
DX: K40.90 Unilateral inguinal hernia, without obstruction or gangrene, not specified as recurrent (principal)
CPT/HCPCS: 99024

== ENCOUNTER 2025-06-16 11:29 | Outpatient (AMB) | payer BC, SELFPAY ==
--- NOTE | 2025-06-16 11:44 | MHC.OFFVIS ---
Vital Signs 06/16/25 11:54 Height 5 ft 7 in Weight 157 lb 4 oz BMI 24.6 BP 189/119 H Blood Pressure Location Lt brachial Position Sitting Intake Visit Reasons: 3 week follow up s/p RIH w/mesh Intake Note: Patient is seen in office for 3 weeks follow up visit, post right inguinal hernia repair. 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 He reports feeling well and denies any significant abdominal pain unless he was walking for a prolonged period of time such as when playing golf. He still has Steri-Strips applied to his incision. [facility] Medical History Gout Alcohol abuse HLD (hyperlipidemia) HTN (hypertension) Smoking Surgical History Hx of right inguinal hernia repair (05/13/25) S/P left inguinal hernia repair (06/22/21) History of back surgery (09/2018) Family History Father Cancer Social History Housing: House Alcohol intake: former Year quit: 2017 Patient Tobacco Use Status: Former Tobacco user Tobacco use type: Smokeless Tobacco Cigarettes Per Day: 12 e-Cigarette/Vaping Use: Currently Using (Nicotine) Second Hand Smoke Exposure: No Substance Use Type: Marijuana service: No Current occupational status: employed Cognitive needs: No Hearing needs: No Vision needs: No Physical Exam Vital Signs: Last Vital Signs BP 189/119 H 06/16/25 11:54 BMI result Body Mass Index 24.6 Const General: comfortable Nutritional Appearance: well nourished Orientation/consciousness: patient oriented x3 Limitations: no limitations Resp Effort & Inspection: normal respiratory effort GI Other: Right inguinal incision is clean, dry and intact. The remaining Steri-Strips were removed in the incision found to be clean. No hernia noted with Valsalva maneuvers. Skin Other: Warm, dry, no rash Neuro General: patient oriented x3 Assessment & Plan Assessment & Plan (1) Right inguinal hernia: Code(s): K40.90 - Unilateral inguinal hernia, without obstruction or gangrene, not specified as recurrent Category: Medical Plan 54-year-old male returning 1 month following repair of a right inguinal hernia with mesh. He tolerated the procedure well in his wounds are healing nicely. Examination today reveals no evidence of infection or recurrent hernia. He may resume normal activity without restriction and should follow up as needed. Coding Level of Care Code Global (29824) Diagnoses Right inguinal hernia K40.90
[2025-06-16 11:54] VITALS: BP 189/119; BMI 24.6
--- OUTSIDE RECORDS SUMMARY | 2025-06-16 12:30 | XMS_ITS | Clinical Summary ---
Author Organization [facility] Address [address] [address] Phone Care Team Providers Care Hvac Mechanical Engineer Name Role Phone Unknown, Unknown Primary Care [...] 12:14 PM EST) URINE CREATININE 119 mg/dL [facility] CREATININE OUTPUT 982 800 - 2,000 mg/total output [facility] Urine (Urine) 10/23/2018 12: 14 PM EST 10/23/2018 12:21 PM EST Claudy Cunha MD URINE ORDERABLES Final Result Performing Organization Address City/State/[facility] Co de Phone Number [address] [address] from Last 3 Months or Most Recently Relevant to Health Maintenance Insurance [facility] Care Teams Hvac Mechanical Engineer Relationship Specialty Start Date End Date Unknown, Unknown, PCP - General 09/27/18 Additional Source Comments The information contained in this document represents components of the legal health record. It is not the complete legal health record.[facility]
== END 2025-06-16 12:02 | disposition home or self-care (01) ==
LOC: HO.HGS 11:30
PROVIDERS: PCP Physician Assistant; Visit Provider Surgery
DX: K40.90 Unilateral inguinal hernia, without obstruction or gangrene, not specified as recurrent (principal)
CPT/HCPCS: 99024

== ENCOUNTER 2025-07-22 10:17 | Outpatient (AMB) | payer BC, SELFPAY ==
[2025-07-22 10:37] VITALS: BP 200/120; PULSE 80; RESP 18; TEMP 36.3; O2SAT 99; BMI 24.8
--- NOTE | 2025-07-22 10:37 | A.OFFPC_ITS ---
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 Patient has a past medical history significant for hypertension and elevated PSA. Patient recently underwent inguinal surgery repair in his doing well. Denies any problems using the restroom. HTN: The patient reports a history of hypertension, with current blood pressure readings at the clinic being significantly elevated at 200/120 mmHg and 190/110 mmHg. The patient attributes these elevated readings to anxiety during clinic visits, as home measurements are typically around 130 mmHg. The patient previously discontinued lisinopril due to lack of symptoms and has not been on any antihypertensive medication since. Otherwise he is asymptomatic without any headaches, chest discomforts, shortness of breath or blurred vision. He does report at times feeling a bit flushed. He does report previously being on lisinopril in the past though has stopped the medication as he felt everything was okay. .. Elevated PSA: Noted elevated PSA at 16.8, does admit to having a family history prostate cancer. He denies any nighttime awakenings for urination or weak urinary stream. He is willing to recheck his PSA Laboratory Tests 05/01/25 08:04 Creatinine 0.87 PSA Screen 16.83 H PFS Medical History Gout Alcohol abuse HLD (hyperlipidemia) HTN (hypertension) Smoking Surgical History Hx of right inguinal hernia repair (05/13/25) S/P left inguinal hernia repair (06/22/21) History of back surgery (09/2018) Family History (Updated 07/22/25 @ 14:18 by Jose Cummins PA-C) Father Cancer Prostate cancer Social History Housing: House Alcohol intake: former Year quit: 2017 Patient Tobacco Use Status: Former Tobacco user Tobacco use type: Smokeless Tobacco Cigarettes Per Day: 12 e-Cigarette/Vaping Use: Currently Using (Nicotine) Second Hand Smoke Exposure: No Substance Use Type: Marijuana service: No Current occupational status: employed Cognitive needs: No Hearing needs: No Vision needs: No Questionnaire Thrive Questionnaire Date Thrive assessed: 04/14/25 I am a: Patient What is your living situation today?: I have a steady place to live Within the past 12 months, did the food you bought not last and you didn't have the money to get more?: Never true Within the past 12 months, did you worry whether your food would run out before you got money to buy more?: Never true Do you have trouble paying for medicines?: No Do you have trouble getting transportation to medical appointments?: No Do you have trouble paying your heating and electricity bill?: No Do you have trouble taking care of your child, family member or friend?: No Do you have trouble with day-to-day activities such as bathing, preparing meals, shopping, managing finances, etc.?: No Are you currently unemployed and looking for a job?: No Are you interested in more education?: No Please select the resources that you would like help with: None Currently or been in a relationship where the following occur: No concerns reported THRIVE Score: 0 LANDY-7 AMB Questionnaire LANDY-7 Date LANDY - 7 assessed: 04/16/25 Source: Developed by Drs. Claudy Rae, Shayla Roper, Trever Perez and colleagues, with an educational ayleen from [employer]. Review of Systems Const Denies headache(s) Eyes Denies loss of vision ENT Denies vertigo, Denies dizziness, Denies headache(s) and Denies sore throat Card Denies chest pain, Denies leg edema and Denies lightheadedness Resp Denies cough, Denies hemoptysis and Denies wheezing GI Denies abdominal pain, Denies melena, Denies constipation, Denies diarrhea and Denies vomiting Denies dysuria, Denies urinary frequency and Denies urinary urgency Musc Denies arthralgias, Denies joint swelling, Denies numbness and Denies tingling Neuro Denies Abnormal speech present, Denies behavioral changes, Denies vertigo, Denies dizziness, Denies headache(s), Denies loss of vision, Denies memory loss, Denies numbness and Denies tingling Psych Denies anxiety, Denies behavioral changes, Denies depression, Denies memory loss and Denies panic attacks Arturo/Lymph Denies easy bleeding and Denies easy bruising Aller/Immun Denies wheezing Physical exam (Primary Care) Vital Signs: Last Vital Signs Temp 97.3 F 07/22/25 10:37 Pulse 80 07/22/25 10:37 Resp 18 07/22/25 10:37 BP 190/100 H 07/22/25 11:05 Pulse Ox 99 07/22/25 10:37 Oxygen Delivery Method Room Air 07/22/25 10:37 BMI result Body Mass Index 24.8 Tobacco/Smoking Status: Tobacco use Status Tobacco use date assessed 07/22/25 07/22/25 10:46 Patient Tobacco Use Status Former Tobacco user 07/22/25 10:46 Tobacco use type Smokeless Tobacco 07/22/25 10:46 e-Cigarette/Vaping Use Currently Using (Nicotine) 07/22/25 10:46 Thrive Assessment: Date of Thrive Assessment Date Thrive assessed 04/14/25 07/22/25 10:46 Currently or been in a relationship where the following occur: No concerns reported Const General: healthy appearing, no acute distress, alert and awake Nutritional Appearance: well nourished Orientation/consciousness: oriented to person, oriented to place and oriented to time HENMT Ears: TM's normal bilaterally General nose exam: Normal nasal mucous membranes and turbinates present Eyes Conjunctivae: conjunctivae normal Sclerae: sclerae normal Pupils: Equal, round and reactive pupils present Neck Neck: Yes no lymphadenopathy and Yes no JVD Thyroid: Thyroid normal Carotids: no bruits Resp Effort & Inspection: normal respiratory effort and not tachypneic Auscultation: no crackles, no rales, no rhonchi and no wheezes Cardio Rate: regular rate Rhythm: regular rhythm Heart sounds: no murmurs and normal S1 and S2 GI Palpation (GI): Soft to palpation, nontender, no hepatomegaly and no splenomegaly Auscultation: normal bowel sounds Skin General skin exam: no rashes or lesions noted and dry skin Neuro General: oriented to person, oriented to place and oriented to time Cranial nerves: Yes Equal, round and reactive pupils present Speech: No Abnormal speech present Gait exam (Neuro): Normal gait present Motor exam (neuro): no tremor noted Extrem Right upper extremity: full ROM Left upper extremity: full ROM Right lower extremity: full ROM; no edema Left lower extremity: full ROM; no edema Psych Mental Status: mental status grossly normal Speech and movement: Normal speech and movement present Affect: normal affect Attitude: cooperative Thought process: Normal thought process present Coding Level of Care Code Est Pt Level 4 (93283) Diagnoses Primary hypertension I10 Hypertension type: primary hypertension Elevated PSA R97.20 Assessment & Plan Assessment & Plan (1) HTN (hypertension): Code(s): I10 - Essential (primary) hypertension Category: Medical Qualifiers: Hypertension type: primary hypertension Qualified Code(s): I10 - Essential (primary) hypertension Plan: Patient's blood pressure significantly elevated today in office. Will restart lisinopril 5 mg and advised patient to monitor blood pressure at home. Fortunately he is asymptomatic without any chest discomfort, headaches dizziness or blurred vision. Goal blood pressures to be below 140/90 and above 100/60 (2) Elevated PSA: Code(s): R97.20 - Elevated prostate specific antigen [PSA] Category: Medical Plan: The patient is advised to undergo another PSA test to confirm the elevated levels and consider a referral to a urologist if the levels remain high. Note he does report his father had prostate cancer Orders: Orders Prostate Specific Antigen Scr Today R97.20 - Elevated prostate specific antigen [PSA], Z12.5 - Encounter for screening for malignant neoplasm of prostate Microalbumin, Random (w Creat) Today I10 - Essential (primary) hypertension Comprehensive [place]. Panel Fast Today I10 - Essential (primary) hypertension Complete Blood Count no Diff Today I10 - Essential (primary) hypertension Medications: New lisinopril 5 mg PO DAILY 90 tabs 1RF I10 - Essential (primary) hypertension
[2025-07-22 11:05] VITALS: BP 190/100
--- OUTSIDE RECORDS SUMMARY | 2025-07-22 11:34 | XMS_ITS | Clinical Summary ---
Author Organization [facility] Address [address] [address] Phone Care Team Providers Care Sample Distributor Name Role Phone Unknown, Unknown Primary Care [...] 10/23/2018 ZOSTER VACCINES (1 of 2) 2020 INFLUENZA VACCINE (#1) 2025 COVID-19 VACCINE (1 - 2023-2 5 season) 2025 Adult Td,Tdap Booster 05/29/2028 05/29/2018 , 01/26/2018 [...] 12:14 PM EST) URINE CREATININE 119 mg/dL [facility] CREATININE OUTPUT 982 800 - 2,000 mg/total output [facility] Urine (Urine) 10/23/2018 12: 14 PM EST 10/23/2018 12:21 PM EST Claudy Cunha MD URINE ORDERABLES Final Result Performing Organization Address City/State/[facility] Co de Phone Number [address] [address] from Last 3 Months or Most Recently Relevant to Health Maintenance Insurance [facility] Care Teams Sample Distributor Relationship Specialty Start Date End Date Unknown, Unknown, PCP - General 09/27/18 Additional Source Comments The information contained in this document represents components of the legal health record. It is not the complete legal health record.[facility]
== END 2025-07-22 12:38 | disposition home or self-care (01) ==
LOC: HO.HMCH 10:18
PROVIDERS: Visit Provider Physician Assistant
DX: I10 Essential (primary) hypertension (principal); R97.20 Elevated prostate specific antigen [PSA]